=== PATIENT | male | born 1955 | race Caucasian/White ===

== ENCOUNTER 2018-05-04 17:19 | Inpatient (IN) | payer OTHER ==
[~2018-05-04] VITALS: Ht 170.2 cm; Wt 92.5 kg
--- NOTE | 2018-05-04 17:33 | ED GENERAL ADULT ---
History of Present Illness General Chief Complaint: General Adult Stated Complaint: BIBA WITH WEAKNESS Source: patient Exam Limitations: no limitations Vital Signs & Intake/Output Vital Signs & Intake/Output Vital Signs Date Time Temp Pulse Resp B/P B/P Pulse O2 O2 Flow FiO2 Mean Ox Delivery Rate 05/05 0711 98.7 74 18 120/68 95 Nasal 3.0L Cannula 05/05 0637 93 Nasal 3.0L Cannula 05/05 0531 100.0 88 20 130/64 93 Nasal 3.0L Cannula 05/05 0528 100.0 88 20 130/64 05/05 0240 97 Nasal 3.0L Cannula 05/05 0200 98.5 91 20 140/69 92 Room Air 05/04 2302 99.0 92 20 140/67 93 Nasal 3.0L Cannula 05/04 2111 99.4 89 20 135/65 95 Nasal 3.0L Cannula 05/04 1903 99.9 91 20 130/66 96 Room Air 05/04 1727 97 20 128/67 95 Nasal Cannula 05/04 1726 Nasal 3.0L Cannula ED Intake and Output 05/05 0000 05/04 1200 Intake Total 0 Output Total Balance 0 Intake, Oral 0 Patient 201 lb Weight Weight Estimated Measurement Method Allergies Coded Allergies: No Known Allergies (05/04/18) Triage Note: PT BIBA FROM HOME. PER EMS REPORT PD WAS CALLED TO DO A WELFARE CHECK BY PT'S COUSIN BECAUSE HE HAD NOT HEARD FROM HIM IN A FEW DAYS. UPON EMS ARRIVAL PT C/O GENERALIZED "NOT FEELING WELL FOR THE LAST FEW DAYS". PT OFFERS NO SPECIFIC COMPLAINTS. PT ARRIVES A&OX3 AND IS SPEAKING IN FULL COMPLETE SENTENCES. RESPRIATIONS EVEN AND NON LABORED. PT WEARS 3 L NC AT BASELINE. Triage Nurses Notes Reviewed? yes HPI: EMS was called who will for check after his cousin that for the patient in a few days. On EMS arrival patient was found to be weak and lethargic. Patient states that he has had a productive cough and increasing shortness of breath. He denies any chest pain or chest tightness. There are no fevers or chills. He has been anorexic. There's been no nausea or vomiting. (Camilo COCHRAN,Gonzales Gonzalez) Reconcile Medications Albuterol Sulfate (Proair Hfa) 90 MCG HFA.AER.AD 2 PUF INH 4XDAILY PRN RESP. (Reported) Aspirin (Ecotrin*) 81 MG TABLET.DR 1 TAB PO DAILY HEART/BLOOD (Reported) Budesonide/Formoterol Fumarate (Symbicort 80-4.5 Mcg Inhaler) 80 MCG-4.5 MCG/ ACTUATION HFA.AER.AD 2 PUF INH BID RESP. (Reported) Fluoxetine HCl 20 MG CAPSULE 2 CAP PO DAILY MENTAL HEALTH (Reported) Gemfibrozil 600 MG TABLET 1 TAB PO BID CHOLESTEROL (Reported) Hydrochlorothiazide 25 MG TABLET 1 TAB PO DAILY DIURETIC/BP (Reported) Levothyroxine Sodium 112 MCG TABLET 1 TAB PO DAILY AC THYROID (Reported) Methadone Hydrochloride (Methadone HCl) 10 MG TABLET 80 MG PO DAILY BACk PAIN (Reported) Omeprazole 40 MG CAPSULE.DR 1 CAP PO Q12H GI (Reported) Pravastatin Sodium 20 MG TABLET 1 TAB PO QHS CHOLESTEROL (Reported) Tamsulosin HCl 0.4 MG CAP.ER.24H 1 CAP PO Q12H (Reported) Tiotropium [place] (Spiriva) 18 MCG CAP.W.DEV 1 CAP INH DAILY RESP. (Reported ) (Edgard Westfall DO) Past History Travel History Traveled to [place] past 21 day No Medical History Any Pertinent Medical History? see below for history Cardiovascular: hyperlipidemia Respiratory: COPD Endocrine: hypothyroidism Surgical History Surgical History: non-contributory Psychosocial History What is your primary language Peruvian Tobacco Use: Current Daily Use Daily Tobacco Use Amount/Type: => 5 Cigarettes daily ETOH Use: denies use Illicit Drug Use: denies illicit drug use Family History Hx Contributory? No (Camilo COCHRAN,Gonzales Gonzalez) Review of Systems Review of Systems Constitutional: Reports: see HPI, chills, weakness. EENTM: Reports: no symptoms. Respiratory: Reports: see HPI, cough, short of breath, sputum production. Cardiovascular: Reports: no symptoms. GI: Reports: see HPI (ANOREXIA). Genitourinary: Reports: no symptoms. Musculoskeletal: Reports: no symptoms. Skin: Reports: no symptoms. Neurological/Psychological: Reports: no symptoms. Hematologic/Endocrine: Reports: no symptoms. Immunologic/Allergic: Reports: no symptoms. All Other Systems: Reviewed and Negative (Camilo COCHRAN,Gonzales Gonzalez) Physical Exam Physical Exam General Appearance: well developed/nourished, alert, awake, moderate distress Head: atraumatic, normal appearance Eyes: Bilateral: PERRL, EOMI. Ears, Nose, Throat: normal pharynx, normal ENT inspection, hearing grossly normal Neck: normal inspection, supple, full range of motion, NO JVD Respiratory: rhonchi (SCATTERED), wheezing (EXP) Cardiovascular: regular rate/rhythm, normal peripheral pulses Gastrointestinal: normal bowel sounds, soft, non-tender, no organomegaly Back: normal inspection, normal range of motion Extremities: normal inspection, normal capillary refill, normal range of motion Neurologic/Psych: no motor/sensory deficits, awake, alert, oriented x 3, normal gait, normal mood/affect Skin: intact, normal color, warm/dry Core Measures ACS in differential dx? No CVA/TIA Diagnosis: No Sepsis Present: No Sepsis Focused Exam Completed? No (Camilo COCHRAN,Gonzales Gonzalez) Progress Differential Diagnoses I considered the following diagnoses in my evaluation of the patient: [COPD EXACERBATION, PNEUMONIA, AMI,M ELECTROLYTE ABNORMALITY, UTI] Plan of Care: Orders Procedure Date/time Status Heart Healthy Diet 05/05 B Active Change service to 05/05 0715 Active Weight 05/05 0618 Active Vital Signs 05/05 618 Active Teach/Educate 05/05 618 Active Pain Treatment and Response 05/05 618 Active Nutritional Intake, Monitor 05/05 618 Active Isolation 05/05 618 Active Intake & Output 05/05 618 Active Patient Care Conference 05/05 0618 Active Activity/Ambulation 05/05 06 Active TROPONIN LEVEL 05/05 0600 Active CBC WITHOUT DIFFERENTIAL 05/05 0600 Active BASIC ELECTROLYTES PLUS BUN&CR 05/05 0600 Active TRC EVALUATION (GEN) 05/05 228 Active OXYGEN SETUP (GEN) 05/05 228 Active Pathway - chart 05/05 228 Active House Staff 05/05 228 Active SPECIMEN TO BE OBTAINED 05/05 228 Active STREP PNEUMO URINARY ANTIGEN 05/05 228 Active LEGIONELLA URINARY ANTIGEN 05/05 228 Active Patient Data 05/05 0159 Active ED Holding Orders 05/05 149 Active Admit to inpatient 05/05 149 Active Vital Signs 05/05 014 Active Code Status 05/05 149 Active Lab Add-on Test 05/05 UNK Active VTE Mechanical Prophylaxis 05/05 UNK Active Intake & Output 05/05 UNK Active FingerStick- Glucose 05/05 UNK Active GLYCOSYLATED HGB 05/04 1741 Complete Telemetry/Drier Unloader 05/04 1731 Active BLOOD CULTURE 05/04 1731 Active URINALYSIS 05/04 1731 Complete TROPONIN LEVEL 05/04 1731 Complete LIPASE 05/04 1731 Complete LACTIC ACID 05/04 1731 Complete COMPREHENSIVE METABOLIC PANEL 05/04 173 Complete CBC WITHOUT DIFFERENTIAL 05/04 1731 Complete AMYLASE 05/04 1731 Complete EKG 05/04 1731 Active Current Medications Sig/Talha Start time Last Medication Dose Stop Time Status Admin Azithromycin 250 MG 0200 05/06 020 AC (Zithromax) 05/09 020 Ceftriaxone Sodium 1,000 MG 0200 05/06 020 CAN (Rocephin) Pravastatin Sodium 20 MG AT BEDTIME 05/05 2100 AC (Pravachol) Aspirin Buffered 81 MG DAILY 05/05 900 AC (Ecotrin) Budesonide/ 2 PUF BID 05/05 900 AC Formoterol Fumarate (SYMBICORT) Enoxaparin Sodium 40 MG DAILY 05/05 09 AC (Lovenox) Fluoxetine HCl 40 MG DAILY 05/05 09 AC (Prozac) Gemfibrozil 600 MG BID 05/05 09 AC (Lopid 600 MG Tab) Methadone HCl 80 MG DAILY 05/05 09 AC (Dolophine) Nicotine 7 MG DAILY 05/05 09 AC (Nicotine Cq) Tiotropium [place] 1 PUF DAILY 05/05 09 AC (Spiriva) Insulin Aspart 0 TIDAC 05/05 08 CAN (NovoLOG) Levothyroxine Sodium 0.112 MG DAILY AC 05/05 07 AC (Synthroid) Omeprazole 40 MG DAILY AC 05/05 07 AC (Prilosec) Albuterol Sulfate 2 PUF Q6-PRN PRN 05/05 415 AC (Ventolin) Tamsulosin HCl 0.4 MG Q12H 05/05 0415 AC 05/05 (Flomax) 0528 Acetaminophen 650 MG Q6P PRN 05/05 023 AC (Tylenol) Acetaminophen 1,000 MG Q6P PRN 05/05 023 AC (Ofirmev) Laboratory Tests 05/05/18 0022: Urinalysis LIGHT H, Urine Color YEL, Urine Clarity CLEAR, Urine pH 6.5, Ur Specific [place] 1.025, Urine Protein 100 H, Urine Ketones 15 H, Urine Nitrite NEG, Urine Bilirubin NEG@ICTO, Urine Urobilinogen 4.0 H, Ur Leukocyte Esterase NEG, Ur Microscopic SEDIMENT EXAMINED, Urine RBC 1-3, Urine WBC 1-3 H, Ur Epithelial Cells FEW, Urine Bacteria RARE H, Urine Mucus MOD H, Urine Hemoglobin NEG, Urine Glucose NEG 05/04/182030: Lactic Acid Cancelled 05/04/181740: Anion Gap 9, Estimated GFR > 60, BUN/Creatinine Ratio 36.0 H, Glucose 116 H, Hemoglobin A1c 6.0 H, Lactic Acid 1.2, Calcium 8.7, Total Bilirubin 0.9, AST 47 , ALT 37, Alkaline Phosphatase 71, Troponin I 0.05, Total Protein 6.2 L, Albumin 3.5, Globulin 2.7, Albumin/Globulin Ratio 1.3, Amylase 42, Lipase 34, CBC w Diff NO MAN DIFF REQ, RBC 4.25 L, MCV 87.3, MCH 29.5, MCHC 33.8, RDW 13.3 , MPV 8.8, Gran % 90.4 H, Lymphocytes % 5.5 L, Monocytes % 4.0, Eosinophils % 0, Basophils % 0.1, Absolute Granulocytes 6.6 H, Absolute Lymphocytes 0.4 L, Absolute Monocytes 0.3, Absolute Eosinophils 0, Absolute Basophils 0 Microbiology 05/05 22 URINE ROUT: Legionella Antigen - RECD 05/05 22 URINE ROUT: Streptococcus pneumoniae Antigen (M - RECD 05/04 180 BLOOD: Blood Culture - RECD 05/04 180 BLOOD: Blood Culture - RECD Diagnostic Imaging: Viewed by Me: Radiology Read. Discussed w/RAD: Radiology Read. Initial ED EKG: NSR, nonspecific ST T wave chg Hand-Off Endorsed To: Edgard Westfall DO Endorsed Time: 1856 Pending: labs (Camilo COCHRAN,Gonzales Gonzalez) Differential Diagnoses I considered the following diagnoses in my evaluation of the patient: (Edgard Westfall DO) Departure Departure Disposition: STILL A PATIENT Condition: Stable Departure Forms: Customer Survey General Discharge Information (Camilo COCHRAN,Gonzales Gonzalez) Departure Clinical Impression Primary Impression: Weakness Secondary Impressions: Pneumonia Comments Patient was reevaluated. Saturation is 90% on oxygen. He has poor air entry bilaterally. Chest x-ray shows pneumonia. Admission Note Spoke With: Matheus Dihn MD Documentation of Exam: Documentation of any treatments & extenuating circumstances including Concerns Regarding Discharge (functional status, medication knowledge or non-compliance, living conditions, etc.) that warrant an admission rather than observation: [The patient needs admission for nebulizer treatments, IV antibiotics, consider pulmonary consultation] (Edgard Westfall DO) Critical Care Note Critical Care Note Critical Care Time: non-applicable (Camilo COCHRAN,Gonzales Gonzalez)
[2018-05-04 17:48] LABS: ABSOLUTE BASOPHIL COUNT 0 /CUMM (0.0-0.2); ABSOLUTE EOSINOPHIL COUNT 0 /CUMM (0.0-0.7); ABSOLUTE GRANULOCYTE CT 6.6 /CUMM (1.4-6.5); ABSOLUTE LYMPH COUNT 0.4 /CUMM (1.2-3.4); ABSOLUTE MONOCYTE COUNT 0.3 /CUMM (0.10-0.60); BASOPHIL % 0.1 % (0.0-2.0); EOSINOPHIL % 0 % (0-5); HEMATOCRIT 37.1 % (42-52); MEAN CORPUSCULAR HGB 29.5 PG (27.0-31.0); MEAN CORPUSCULAR HGB CONC 33.8 G/DL (33.0-37.0); MEAN CORPUSCULAR VOLUME 87.3 FL (80.0-94.0); MEAN PLATELET VOLUME 8.8 FL (7.4-10.4); PLATELET COUNT 145 /CUMM (130-400); RBC DISTRIBUTION WIDTH 13.3 % (11.5-14.5); RED BLOOD CELL CT 4.25 /CUMM (4.70-6.10); WHITE BLOOD CELL COUNT 7.3 /CUMM (4.8-10.8)
[2018-05-04 18:06] LABS: GRANULOCYTE % 90.4 % (42.2-75.2)
--- NOTE | 2018-05-04 18:57 | RADIOLOGY REPORT ---
EXAMINATION: XR PORTABLE CHEST CLINICAL INFORMATION: Chest pain COMPARISON: None TECHNIQUE: Portable frontal view of the chest was obtained. FINDINGS: There is a large consolidation at the right lung base. The cardiac silhouette appears moderately enlarged. The missile contours are within normal limits. Lungs are otherwise clear. No pleural effusion. IMPRESSION: 1. Right lower lobe pneumonia. Recommend repeat radiograph in 4-6 weeks following treatment. 2. Moderate cardiomegaly.
[2018-05-04] MEDS ORDERED: FLUOXETINE HCL20 M2 PO (19:27)
[2018-05-04] MEDS ORDERED: LEVOTHYROXINE112 MCG PO (19:27)
[2018-05-04] MEDS ORDERED: HYDROCHLOROTHIA25 M1 PO (19:27)
[2018-05-04] MEDS ORDERED: TAMSULOSIN HCL0.4 M1 PO (19:27)
[2018-05-04] MEDS ORDERED: SYMBICORT 80-10.2 GM INH (19:28)
[2018-05-04] MEDS ORDERED: SPIRIVA18 MCG INH (19:28)
[2018-05-04] MEDS ORDERED: GEMFIBROZIL600 M1 PO (19:28)
[2018-05-04] MEDS ORDERED: METFORMIN HCL1000 M1 PO (19:28)
[2018-05-04] MEDS ORDERED: PROAIR HFA8.5 GM INH (19:28)
[2018-05-04] MEDS ORDERED: PRAVASTATIN SOD20 M2 PO (19:29)
[2018-05-04] MEDS ORDERED: OMEPRAZOLE40 M1 PO (19:29)
[2018-05-04] MEDS ORDERED: ASPIRIN EC81 M1 PO (19:30)
--- NOTE | 2018-05-05 02:30 | History & Physical ---
Johnny Fermin 05/05/18 0229: General Information and HPI MD Statement: I have seen and personally examined MATHEUS PLEITEZ and documented this H&P. The patient is a 63 year old M who presented with a patient stated chief complaint of [weakness x 6 days]. Source of Information: patient, old records History of Present Illness: 63M PMH COPD recently diagnosed 8 months ago on 3L oxygen at home, HLD, Hypothyroidism, Diet Controlled DM, BPH presents with a 6 day history of weakness, fatigue, lethargy that has worsened as well as a 3 day history of cough and increased shortness of breath as well as decreased PO intake. Pt states that he feels that he has "the flu" and that this has happened to him once before 8 months ago at the [facility], where he was admitted for two days and given a prednisone taper and diagnosed with COPD. He states that after that admission he has been lethargic however six days ago it acutely worsened. Denies any recent exposures, is not working/retired. Pt states that his cousin called EMS as he did not hear from patient for several days and he was brought in by EMS as he was weak and lethargic. Pt states that the only thing he has eaten in the last three days was the half of peanut butter sandwich he had in the ED; states that he was not hungry the past two days and states that he was quick to feel full today in the ED. Does state that he has taken down fluids. Also states that he has had a nonproductive cough the past three days which has worsened, although not as bad as his previous admission 8 months ago which was productive of green sputum. Is on home O2 3L, and has not increased the use of his inhalers. Pt [facility] States that [facility] but instead was "dragged in by his cousin". Is concerned about a lesion on the right side of his forehead that has grown in size and changed color over the past two years, although states that yesterday he fell out of bed 3 times throughout the night. Also admits to a significant use of Aleeve, 4 pills a day daily for several months. States that he has had several bruises on his arms that bleed easily because of the aleeve, and his [facility] doctor told him to stop taking that. 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; on Methadone 80mg daily due to back pain ROS: Significant findings for recent falls (3x during his sleep), Subjective fevers Negative for: Measured fevers, dizziness, blurred vision, chest pain, abdominal pain, n/v/d, urinary symptoms, LE edema Allergies/Medications Compliance With Home Meds: FAIR Past History Travel History Traveled to [place] past 21 day No Medical History Cardiovascular: hyperlipidemia Respiratory: COPD Endocrine: diabetes (diet controlled), hypothyroidism Surgical History Surgical History: non-contributory Past Family/Social History Psychosocial History Smoking Status: Current Everyday Smoker ETOH Use: denies use Illicit Drug Use: denies illicit drug use Functional Ability ADLs Independent: dressing, eating, toileting, bathing. Ambulation: independent IADLs Independent: shopping, housework, finances, food prep, telephone, transportation , medication admin. 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 Denies: unexplained weight loss. Cardiovascular: Denies: chest pain, palpitations. Respiratory: Reports: cough, short of breath. Denies: hemoptysis, sputum production, wheezing. GI: Denies: abdominal pain, diarrhea, nausea, vomiting. Genitourinary: Denies: dysuria, frequency. Exam & Diagnostic Data Last 24 Hrs of Vital Signs/I&O Vital Signs Date Time Temp Pulse Resp B/P B/P Pulse O2 O2 Flow FiO2 Mean Ox Delivery Rate 05/05 0240 97 Nasal 3.0L Cannula 05/05 0200 98.5 91 20 140/69 92 Room Air 05/04 2302 99.0 92 20 140/67 93 Nasal 3.0L Cannula 05/04 2111 99.4 89 20 135/65 95 Nasal 3.0L Cannula 05/04 1903 99.9 91 20 130/66 96 Room Air 05/04 1727 97 20 128/67 95 Nasal Cannula 05/04 1726 Nasal 3.0L Cannula Intake & Output 05/05 0800 08/13 0000 05/04 1600 Intake Total 0 Output Total Balance 0 Intake, Oral 0 Patient 201 lb Weight Weight Estimated Measurement Method Physical Exam General Appearance Alert, Oriented X3, Cooperative, No Acute Distress Skin small papular lesion to R forehead, violaceous/brown in color, tattoos on forearms; small ?bruising to b/l upper extremities Skin Temp/Moisture Exam: Warm/Dry HEENT poor dentition Neck No JVD Cardiovascular Regular Rate, Normal S1, Normal S2 Lungs rhoncherous in all koehler, inspriatory wheeze to RLL Abdomen Soft, RUQ tenderness, LLQ tenderness Neurological Strength at 5/5 X4 Ext, Sensation Intact Extremities No Edema Assessment/Plan Assessment: 63M PMH COPD recently diagnosed 8 months ago on 3L oxygen at home, HLD, Hypothyroidism, Diet Controlled DM, BPH presents with a 6 day history of weakness, fatigue, lethargy that has worsened as well as a 3 day history of cough and increased shortness of breath as well as decreased PO intake. He was found to have a RLL pneumonia on CXR, although without Leukocytosis or Fevers. He desaturated to 90% in the ED and was thus admitted for treatment of CAP. His urine legionella antigen came back positive and thus will be treated for Legionella. Patient will be treated for Legionella pneumonia with hyponatremia and antigen positive,however other differentials include Community Acquired Pneumonia, COPD exacerbation although less likely given CXR findings and no significant SOB on exam, Acute bronchitis, Pulm edema (without crackles or edema on PE but CXR findings of cardiomegaly) Problem List #Legionella PNA #Normacytic anemia #Hyponatremia, likely 2/2 Legionella, however may also 2/2 HCTZ use #Methadone dependence, 80mg qd for back pain. #PMHx as above #Legionella Pneumonia -Zithromax PO -F/u CBC #Hyponatremia -Hold HCTZ, likely 2/2 Legionella however can also contribute #DM - diet controlled - recheck HbA1c. #COPD on 3L oxygen at home - Supplemental O2/DuoNeb as needed. - Not in COPD exacerbation, at baseline 3LNC. Will monitor off solumedrol. #Methadone dependence - Confirmed CTPMP for methadone 80mg daily. DVT prophylaxis Lovenox + ALPS Regular Diet IV Access: Peripheral IV Full Code Dispo: likely [facility] As Ranked By This Provider Problem List: 1. Pneumonia 2. Weakness Core Measures/Misc (06/09) Acute Coronary Syndrome ACS Diagnosis: No Congestive Heart Failure Congestive Heart Failure Diagnosis No Cerebrovascular Accident CVA/TIA Diagnosis: No VTE (View Protocol) VTE Risk Factors Age>40 No Mechanical VTE Prophylaxis d/t N/A MechProphylax Ordered No VTE Pharm Prophylaxis d/t NA PharmProphylax ordered Sepsis (View protocol) Sepsis Present: No If YES complete Sepsis Event Note If YES complete Sepsis Event Note Tiffanie Christine 05/05/18 0255: Core Measures/Misc (06/09) Sepsis (View protocol) If YES complete Sepsis Event Note If YES complete Sepsis Event Note Resident Review Statement Resident Statement: examined this patient, discussed with leadership program intern, agreed with leadership program intern, discussed with family, reviewed EMR data (avail), discussed with nursing , discussed with case mgmt, reviewed images, amended to note Other Findings: Mr. Pleitez is a 63yo M w/ PMH of DIet-controlled DM, HLD, COPD on home O2 3L, hypoTSH, BPH presented to ER CC of appeared to be SOB, weak, and lethargic, w/ productive cough w/ green sputum x 3 days, and increasing lethargy x 6 days w/ decreased PO intake. His cousin called EMS as he did not hear from the patient for several days. He has been taken [facility] without previous medical records here. Based on clinical presentaion, patient might have a community acquired PNA +/- COPD exacerbation, although no increased needs of oxygen was observed in the ER. CXR confirmed CAP findings, and urinary antigen showed positive legionella, that explained the hyponatremia, although the hypoNa could partially be due to use of HCTZ at home as well. Patient had been off metformin at this point. He is also taking Methadone 80mg daily for back pain. Patient also c/o RUQ and LLQ ab pain, mild. Unclear etiology at this point, however based on labs w/o leukocytosis/LFTs or any toxic signs of infection, would monitor for now. -Smoking: self-rolled cigars daily -Alcohol: 1-2 beer daily -Drugs: denied On admission, Vitals: Tmax 99.9, HR tachy 92, RR 20, BP 140/67, 93 3LNC Physical exam as above per HPI. -CBC: No leukocytosis, H/H 12.5/37.1 -CMP: Hyponatremia 131, Bicardb 32, CL 91, otherwise WNL. -CXR: 1. Right lower lobe pneumonia. Recommend repeat radiograph in 4-6 weeks following treatment. 2. Moderate cardiomegaly. -EKG: NSR w/o significant ST-T abnormalities, unchanged from previous. -Last Echo: not in our system -Interventions in ER: Duonebs, Rocephin/Zithromax x 1, solumedrol 125 IV x 1 Problem list/Assessment/Hospital Course: #Legionella PNA #Normacytic anemia #Hyponatremia, likely 2/2 Legionella, however may also 2/2 HCTZ use #Methadone dependence, 80mg qd for back pain. #PMHx as above - Admit to general medicine - Vitals per protocol, monitor I&O per protocol. - recheck HbA1c. - Supplemental O2/DuoNeb as needed. - Not in COPD exacerbation, at baseline 3LNC. Will monitor off solumedrol. - Continue Zithromax PO for now to cover legionella, and determine duration per clinical course - Continue all home meds, except HOLDING HCTZ/Metformin - Confirmed CTPMP for methadone 80mg daily. - Pending cultures including blood/sputum, urine antigens, etc. - Pain per pathway DVT prophylaxis Lovenox + ALPS Regular Diet IV Access: Peripheral IV Full Code Dispo: likely [place] Matheus Dinh MD 05/05/18 0428: General Information and HPI Statement: I have seen and personally examined MATHEUS PLEITEZ and documented this H&P. The patient is a 63 year old M who presented with a patient stated chief complaint of [pneumonia]. Source of Information: old records Allergies/Medications Allergies: Coded Allergies: No Known Allergies (05/04/18) Home Med list Albuterol Sulfate (Proair Hfa) 90 MCG HFA.AER.AD 2 PUF INH 4XDAILY PRN RESP. (Reported) Aspirin (Ecotrin*) 81 MG TABLET. 1 TAB PO DAILY HEART/BLOOD (Reported) Budesonide/Formoterol Fumarate (Symbicort 80-4.5 Mcg Inhaler) 80 MCG-4.5 MCG/ ACTUATION HFA.AER.AD 2 PUF INH BID RESP. (Reported) Fluoxetine HCl 20 MG CAPSULE 2 CAP PO DAILY MENTAL HEALTH (Reported) Gemfibrozil 600 MG TABLET 1 TAB PO BID CHOLESTEROL (Reported) Hydrochlorothiazide 25 MG TABLET 1 TAB PO DAILY DIURETIC/BP (Reported) Levothyroxine Sodium 112 MCG TABLET 1 TAB PO DAILY AC THYROID (Reported) Methadone Hydrochloride (Methadone HCl) 10 MG TABLET 80 MG PO DAILY BACk PAIN (Reported) Omeprazole 40 MG CAPSULE.DR 1 CAP PO Q12H GI (Reported) Pravastatin Sodium 20 MG TABLET 1 TAB PO QHS CHOLESTEROL (Reported) Tamsulosin HCl 0.4 MG CAP.ER.24H 1 CAP PO Q12H (Reported) Tiotropium [place] (Spiriva) 18 MCG CAP.W.DEV 1 CAP INH DAILY RESP. (Reported ) Past History Medical History Cardiovascular: hyperlipidemia Respiratory: COPD Endocrine: diabetes, hypothyroidism Surgical History Surgical History: non-contributory Past Family/Social History Psychosocial History Smoking Status: Current Everyday Smoker ETOH Use: denies use Illicit Drug Use: denies illicit drug use Employment History Employment Retired Review of Systems Review of Systems Constitutional: Reports: see HPI. Exam & Diagnostic Data Last 24 Hrs of Vital Signs/I&O Vital Signs Date Time Temp Pulse Resp B/P B/P Pulse O2 O2 Flow FiO2 Mean Ox Delivery Rate 05/05 0240 97 Nasal 3.0L Cannula 05/05 0200 98.5 91 20 140/69 92 Room Air 05/04 2302 99.0 92 20 140/67 93 Nasal 3.0L Cannula 05/04 2111 99.4 89 20 135/65 95 Nasal 3.0L Cannula 05/04 1903 99.9 91 20 130/66 96 Room Air 05/04 1727 97 20 128/67 95 Nasal Cannula 05/04 1726 Nasal 3.0L Cannula Intake & Output 05/05 0800 05/05 0000 05/04 1600 Intake Total 0 Output Total Balance 0 Intake, Oral 0 Patient 201 lb Weight Weight Estimated Measurement Method Physical Exam General Appearance Alert, Oriented X3, Cooperative, No Acute Distress Skin small papular lesion to R forehead, violaceous/brown in color, tattoos on forearms; small ?bruising to b/l upper extremities Skin Temp/Moisture Exam: Cool/Dry Sepsis Skin Exam (color): Normal for Ethnicity HEENT Atraumatic, PERRLA, EOMI, poor dentition Neck Supple, No JVD Lymphatic Axillary nl, Cervical nl Cardiovascular Regular Rate, Normal S1, Normal S2 Lungs Clear to Auscultation, Normal Air Movement, rhoncherous in all koehler, inspriatory wheeze to RLL Abdomen Soft, RUQ tenderness, LLQ tenderness Neurological Strength at 5/5 X4 Ext, Sensation Intact Extremities No Edema Last 24 Hrs of Labs/Melvin: Laboratory Tests 05/05/1821: Urinalysis LIGHT H, Urine Color YEL, Urine Clarity CLEAR, Urine pH 6.5, Ur Specific [place] 1.025, Urine Protein 100 H, Urine Ketones 15 H, Urine Nitrite NEG, Urine Bilirubin NEG@ICTO, Urine Urobilinogen 4.0 H, Ur Leukocyte Esterase NEG, Ur Microscopic SEDIMENT EXAMINED, Urine RBC 1-3, Urine WBC 1-3 H, Ur Epithelial Cells FEW, Urine Bacteria RARE H, Urine Mucus MOD H, Urine Hemoglobin NEG, Urine Glucose NEG 05/04/182030: Lactic Acid Cancelled 05/04/18 1741: Anion Gap 9, Estimated GFR > 60, BUN/Creatinine Ratio 36.0 H, Glucose 116 H, Hemoglobin A1c Pending, Lactic Acid 1.2, Calcium 8.7, Total Bilirubin 0.9, AST 47, ALT 37, Alkaline Phosphatase 71, Troponin I 0.05, Total Protein 6.2 L, Albumin 3.5, Globulin 2.7, Albumin/Globulin Ratio 1.3, Amylase 42, Lipase 34, CBC w Diff NO MAN DIFF REQ, RBC 4.25 L, MCV 87.3, MCH 29.5, MCHC 33.8, RDW 13.3 , MPV 8.8, Gran % 90.4 H, Lymphocytes % 5.5 L, Monocytes % 4.0, Eosinophils % 0, Basophils % 0.1, Absolute Granulocytes 6.6 H, Absolute Lymphocytes 0.4 L, Absolute Monocytes 0.3, Absolute Eosinophils 0, Absolute Basophils 0 Microbiology 05/05 22 URINE ROUT: Legionella Antigen - RECD 05/05 22 URINE ROUT: Streptococcus pneumoniae Antigen (M - RECD 05/04 1804 BLOOD: Blood Culture - RECD 05/04 1803 BLOOD: Blood Culture - RECD Core Measures/Misc (06/09) Sepsis (View protocol) If YES complete Sepsis Event Note If YES complete Sepsis Event Note Attending MD Review Statement Attending Statement Attending MD Statement: examined this patient, discuss w/resident/PA/SORTING AND FOLDING SUPERVISOR, agreed w/resident/PA/SORTING AND FOLDING SUPERVISOR, reviewed images, amended to note Attending Assessment/Plan: This patient is a 63-year-old male with a significant past medical history for COPD recently diagnosed 8 months ago on 3L oxygen at home, HLD, Hypothyroidism, Diet Controlled DM, BPH presents with a 6 day history of weakness, fatigue, lethargy that has worsened. He also complaints of a 3 day history of cough and increased shortness of breath. He states that his cousin called EMS as he did not hear from patient for several days. Upon evaluation in the emergency department is found to have a temperature of 99.9, normal white blood cell count , hyponatremia 131, chest x-ray right lower lobe pneumonia, and EKG NSR. The patient will be admitted to general medicine for right lower lobe pneumonia secondary to Legionella. Continue azathioprine erythromycin supportive care for respiratory symptoms. FULL CODE
[2018-05-05] MEDS ORDERED: METHADONE HCL10 M1 PO (04:10)
[2018-05-05 07:11] VITALS: BP 120/68
--- NOTE | 2018-05-05 07:25 | PN- Housestaff ---
See Addendum Doris Rincon 05/05/18 0724: Subjective Follow-up For: RLL pneumonia Subjective: The patient was seen and examined at bedside. He reports he feels slightly better, although still weak. He is concerned why he got a recurence of the pneumonia in just 8 months. He reports some diffuse abdominal tenderness. He complains the [facility] paid no attention to his concerns of feeling weak with no energy at all. The patient lives in a mobile home with poor air- conditioning. He says the air conditioning "smells bad" when he turns it on. He says he has no money to replace it. He reports that he was accepted at an assisted living facility but has no money to move his stuff. He was reassured. He denies fever, chills, nausea, vomitng, diarrhea or constipation. Review of Systems Constitutional: Reports: see HPI. Objective Last 24 Hrs of Vital Signs/I&O Vital Signs Date Time Temp Pulse Resp B/P B/P Pulse O2 O2 Flow FiO2 Mean Ox Delivery Rate 05/05 0711 98.7 74 18 120/68 95 Nasal 3.0L Cannula 05/05 0637 93 Nasal 3.0L Cannula 05/05 0531 100.0 88 20 130/64 93 Nasal 3.0L Cannula 05/05 0528 100.0 88 20 130/64 05/05 0240 97 Nasal 3.0L Cannula 05/05 0200 98.5 91 20 140/69 92 Room Air 05/04 2302 99.0 92 20 140/67 93 Nasal 3.0L Cannula 05/04 2111 99.4 89 20 135/65 95 Nasal 3.0L Cannula 05/04 1903 99.9 91 20 130/66 96 Room Air 05/04 1727 97 20 128/67 95 Nasal Cannula 05/04 1726 Nasal 3.0L Cannula Intake & Output 05/05 1600 05/05 0800 05/05 0000 Intake Total 0 Output Total Balance 0 Intake, Oral 0 Patient 204 lb 201 lb Weight Weight Bed scale Estimated Measurement Method Physical Exam General Appearance: Alert, Oriented X3, Cooperative, No Acute Distress Neck: Supple Cardiovascular: Regular Rate, Normal S1, Normal S2 Lungs: Scattered rhonchi b/l lung koehler decreased air entry b/l lung bases Abdomen: Mild diffuse tenderness especially localised in the RUQ and LLQ Assessment/Plan Assessment: 63M PMH COPD recently diagnosed 8 months ago on 3L oxygen at home, HLD, Hypothyroidism, Diet Controlled DM, BPH presents with a 6 day history of weakness, fatigue, lethargy that has worsened as well as a 3 day history of cough and increased shortness of breath as well as decreased PO intake. He was found to have a RLL pneumonia on CXR, although without Leukocytosis or Fevers. He desaturated to 90% in the ED and is thusadmitted for treatment of CAP. His urine legionella antigen came back positive and thus will be treated for Legionella. Patient is being treated for Legionella pneumonia with hyponatremia( could be secondary to HCTZ use0 and antigen positive,however other differentials include Community Acquired Pneumonia, COPD exacerbation although less likely given CXR findings and no significant SOB on exam, Acute bronchitis, Pulm edema (without crackles or edema on PE but CXR findings of cardiomegaly) Problem List 1.Legionella PNA 2.Normacytic anemia 3.Hyponatremia, likely 2/2 Legionella, however may also 2/2 HCTZ use 4.Methadone dependence, 80mg qd for back pain. 5.PMHx as above 1. Legionella Pneumonia -The patient does complain of extreme malaise and weakness - The patient is on Zithromax 250mg PO -WBC 6.7 Na: 131, Cl:90 -F/u CBC 2. Hyponatremia -We are holding his HCTZ for now given hypokalemia and borderline hypokalemia 3. DM - diet controlled - We will recheck his HbA1C 4. COPD on 3L oxygen at home - Supplemental O2/DuoNeb as needed. - Not in COPD exacerbation, at baseline 3LNC. Will monitor off solumedrol. 5.Methadone dependence - Confirmed CTPMP for methadone 80mg daily. DVT prophylaxis Lovenox + ALPS Regular Diet IV Access: Peripheral IV Full Code Dispo: to be decided Problem List: 1. Legionnaires' disease 2. Weakness Pain Ratin Pain Location: na Pain Goal: Remain pain free Pain Plan: pathway Tomorrow's Labs & Rationales: cbc and bep Gustavo Iqbal 05/05/18 1518: Attending MD Review Statement Attending Statement Attending MD Statement: examined this patient, discuss w/resident/PA/PARKING METER COLLECTOR, agreed w/resident/PA/PARKING METER COLLECTOR, reviewed EMR data (avail), discussed with nursing, discussed with case mgmt Attending Assessment/Plan: Legionella pneumonia- pt feeling better. cont on zithromax. pt responding. pt wants to go to [facility] living. will have social work associate talk to him about it. d/w pt the care plan. encouraged pt to quit smoking .
[2018-05-05 11:49] LABS: ABSOLUTE BASOPHIL COUNT 0 /CUMM (0.0-0.2); ABSOLUTE EOSINOPHIL COUNT 0 /CUMM (0.0-0.7); ABSOLUTE GRANULOCYTE CT 6.3 /CUMM (1.4-6.5); ABSOLUTE LYMPH COUNT 0.3 /CUMM (1.2-3.4); ABSOLUTE MONOCYTE COUNT 0.1 /CUMM (0.10-0.60); BASOPHIL % 0 % (0.0-2.0); EOSINOPHIL % 0 % (0-5); HEMATOCRIT 34.8 % (42-52); MEAN CORPUSCULAR HGB 30.1 PG (27.0-31.0); MEAN CORPUSCULAR HGB CONC 34.4 G/DL (33.0-37.0); MEAN CORPUSCULAR VOLUME 87.4 FL (80.0-94.0); MEAN PLATELET VOLUME 8.9 FL (7.4-10.4); PLATELET COUNT 142 /CUMM (130-400); RBC DISTRIBUTION WIDTH 13.2 % (11.5-14.5); RED BLOOD CELL CT 3.98 /CUMM (4.70-6.10); WHITE BLOOD CELL COUNT 6.7 /CUMM (4.8-10.8)
[2018-05-05 12:39] LABS: GRANULOCYTE % 93.7 % (42.2-75.2)
[2018-05-05 22:07] VITALS: BP 100/60
[2018-05-06 06:11] VITALS: BP 104/60
--- NOTE | 2018-05-06 07:38 | PN- Housestaff ---
Doris Rincon 05/06/18 0738: Subjective Follow-up For: Legionella Pneumonia Subjective: The patient was seen and examined at bedside today. He says he feels much better. He denies shortness of breath, fever, nausea, vomiting, diarrhea, constipation. Review of Systems Constitutional: Reports: see HPI. Objective Last 24 Hrs of Vital Signs/I&O Vital Signs Date Time Temp Pulse Resp B/P B/P Pulse O2 O2 Flow FiO2 Mean Ox Delivery Rate 05/06 1404 97.0 58 20 122/60 98 Room Air 05/06 1000 95 Room Air 05/06 0800 95 Nasal 3.0L Cannula 05/06 0611 97.5 60 20 104/60 98 Room Air 05/06 0500 65 100/60 05/06 0000 Nasal 3.0L Cannula 05/05 2207 97.8 63 18 100/60 96 Room Air 05/05 1915 94 Room Air 05/05 1650 78 138/70 Intake & Output 05/06 1600 05/06 0800 05/06 0000 Intake Total 720 360 700 Output Total Balance 720 360 700 Intake, Oral 720 360 700 Number 1 Bowel Movements Physical Exam General Appearance: Alert, Oriented X3, Cooperative, No Acute Distress Skin: No Rashes Neck: Supple Cardiovascular: Regular Rate, Normal S1, Normal S2 Lungs: Clear to Auscultation, decreased air entry Right lower lobe Abdomen: Normal Bowel Sounds, Soft, No Tenderness Assessment/Plan Assessment: 63M PMH COPD recently diagnosed 8 months ago on 3L oxygen at home, HLD, Hypothyroidism, Diet Controlled DM, BPH presents with a 6 day history of weakness, fatigue, lethargy that has worsened as well as a 3 day history of cough and increased shortness of breath as well as decreased PO intake. He was found to have a RLL pneumonia on CXR, although without Leukocytosis or Fevers. His urine legionella antigen came back positive. Patient is being treated for Legionella pneumonia with hyponatremia( could be secondary to HCTZ use0 and antigen positive,however other differentials include Community Acquired Pneumonia, COPD exacerbation although less likely given CXR findings and no significant SOB on exam, Acute bronchitis, Pulm edema (without crackles or edema on PE but CXR findings of cardiomegaly) Problem List 1.Legionella PNA 2.Normacytic anemia 3.Hyponatremia, likely 2/2 Legionella, however may also 2/2 HCTZ use 4.Methadone dependence, 80mg qd for back pain. 5.PMHx as above 6. History of COPD on oxygen 1. Legionella Pneumonia -The patient does complain of extreme malaise and weakness - The patient is on Zithromax 250mg PO - The patient is being discharged home on Zithromax 250mg BID for 5 more days. 2. Hyponatremia -We are holding his HCTZ for now given hypokalemia and borderline hypokalemia 3. DM - diet controlled -Patient was encouraged to continue to try eating healthy for his diabetes, 4. COPD on 3L oxygen at home - Supplemental O2/DuoNeb as needed. - Not in COPD exacerbation, at baseline 3LNC. 5.Methadone dependence - Confirmed CTPMP for methadone 80mg daily. DVT prophylaxis Code status: Full code Problem List: 1. History of COPD 2. Legionnaires' disease 3. Pneumonia 4. Weakness Pain Ratin Pain Location: na Pain Goal: Remain pain free Pain Plan: na Tomorrow's Labs & Rationales: Gustavo Zapata 05/06/18 1449: Attending MD Review Statement Attending Statement Attending MD Statement: examined this patient, discuss w/resident/PA/PACKER INSPECTOR, agreed w/resident/PA/PACKER INSPECTOR, reviewed EMR data (avail), discussed with nursing, discussed with case mgmt Attending Assessment/Plan: Legionella pneumonia- pt feeling better. cont on zithromax. pt responding. Dc home today on po zithromax. Nicotine dependence. encouraged pt to quit smoking . given nicotine patch prescription. d/w pt the dc plan. Pt lives in a mobile home.
[2018-05-06 08:31] LABS: ABSOLUTE BASOPHIL COUNT 0 /CUMM (0.0-0.2); ABSOLUTE EOSINOPHIL COUNT 0 /CUMM (0.0-0.7); ABSOLUTE GRANULOCYTE CT 5.3 /CUMM (1.4-6.5); ABSOLUTE LYMPH COUNT 0.8 /CUMM (1.2-3.4); ABSOLUTE MONOCYTE COUNT 0.5 /CUMM (0.10-0.60); BASOPHIL % 0 % (0.0-2.0); EOSINOPHIL % 0.7 % (0-5); GRANULOCYTE % 79.7 % (42.2-75.2); HEMATOCRIT 32.8 % (42-52); MEAN CORPUSCULAR HGB 30.6 PG (27.0-31.0); MEAN CORPUSCULAR VOLUME 87.5 FL (80.0-94.0); MEAN PLATELET VOLUME 9.2 FL (7.4-10.4); PLATELET COUNT 151 /CUMM (130-400); RED BLOOD CELL CT 3.75 /CUMM (4.70-6.10); WHITE BLOOD CELL COUNT 6.7 /CUMM (4.8-10.8)
[2018-05-06] MEDS ORDERED: NICOTINE PATCH1 EAC3 TOP (13:44)
[2018-05-06] MEDS ORDERED: AZITHROMYCIN250 M1 PO (13:44)
--- NOTE | 2018-05-06 13:46 | Patient Discharge Instructions ---
Discharge Instructions General Discharge Information You were seen/treated for: Pneumonia Special Instructions: 1. Please follow up with your PCP in a week. 2. Please report to the ED immediately if you develop fever, chills or shortness of breath Acute Coronary Syndrome Inclusion Criteria At DC or during hospital stay patient has or had the following: ACS DIAGNOSIS No Discharge Core Measures Meds if any: Prescribed or Continued at Discharge Meds if any: NOT Prescribed or Continued at Discharge Congestive Heart Failure Inclusion Criteria At DC or during hospital stay patient has or had the following: CHF DIAGNOSIS No Discharge Core Measures Meds if any: Prescribed or Continued at Discharge Meds if any: NOT Prescribed or Continued at Discharge Cerebrovascular accident Inclusion Criteria At DC or during hospital stay patient has or had the following: CVA/TIA Diagnosis No Discharge Core Measures Meds if any: Prescribed or Continued at Discharge Meds if any: NOT Prescribed or Continued at Discharge Venous thromboembolism Inclusion Criteria VTE Diagnosis No VTE Type NONE VTE Confirmed by (Test) NONE Discharge Core Measures - Per Current guidelines, there needs to be overlap - treatment for the first 5 days of Warfarin therapy. - If discharged on Warfarin prior to 5 days of - overlap therapy, the patient will need to be - assessed for post discharge needs including - *Post discharge parental anticoagulation - *Warfarin and/or parental anticoagulation education - *Follow up date to check INR post discharge At least 5 days overlap therapy as Inpatient No Meds if any: Prescribed or Continued at Discharge Note: Overlap Therapy is Warfarin and Anticoagulant Meds if any: NOT Prescribed or Continued at Discharge
[2018-05-06 14:04] VITALS: BP 122/60
--- NOTE | 2018-05-07 08:50 | Discharge Summary ---
Visit Information Visit Dates Admission Date: 05/05/18 Discharge Date: 05/06/18 Hospital Course Course Attending Physician: Ignacio Moya MD Primary Care Physician: Axel Cheney MD Hospital Course: 63M PMH COPD recently diagnosed 8 months ago on 3L oxygen at home, HLD, Hypothyroidism, Diet Controlled DM, BPH was admitted to the [facility] service for the management of acute on chronic respiratory failure secondary to CAP. On examination, small papular lesion to R forehead, violaceous/brown in color was noticed on the forehead. Lungs were rhoncherous in all koehler, inspriatory wheeze to RLL. Abdomen was soft with RUQ tenderness, LLQ tenderness. Vital signs in the ED were: Tmax 99.9, HR tachy 92, RR 20, BP 140/67, 93 3LNC -CBC: No leukocytosis, H/H 12.5/37.1 -CMP: Hyponatremia 131, Bicarb 32, CL 91, otherwise WNL. Urine Ag was positive for Legionella. -CXR: 1. Right lower lobe pneumonia. Recommend repeat radiograph in 4-6 weeks following treatment. 2. Moderate cardiomegaly. He was managed for the following problems: 1.Legionella PNA 2.Normacytic anemia 3.Hyponatremia, likely 2/2 Legionella, however may also 2/2 HCTZ use 4.Methadone dependence, 80mg qd for back pain. 5.PMHx as above 6. Acute on chronic respiratory failure 1. Legionella Pneumonia -Patient presented with a 6 day history of weakness, fatigue, lethargy that has worsened as well as a 3 day history of cough and increased shortness of breath as well as decreased PO intake. -The patient reported that he lives in a mobile home with air conditoning that ' smells bad" when turned on. - The patient was given Zithromax 250 mg BID and showed rapid improvemnt in his symptoms of malaise, fatigue and shortness of breath. -The patient was afebrile with a WBC of 6.7 on the day of discharge. -He remained on the 3L oxygen during the course of his hospital stay. -He was discharged home on Azithromycin 250mg BID for 5 days -Smoking cessation was encouraged and his nicotine patch was increased to 21mg 2. Hyponatremia -We held his HCTZ in the hospital for the concerns of hyponatremia. His Na was 136 on discharge. 3. DM - diet controlled - HbA1C was 6 in the hospital 4. COPD on 3L oxygen at home -The patient remained on 3L oxygen for chronic respiratory failure while in the hospital 5.Methadone dependence - Confirmed [facility] for methadone 80mg daily. DVT prophylaxis Lovenox + ALPS. He was a full code during his stay. Allergies: Coded Allergies: No Known Allergies (05/04/18) Disposition Summary Disposition Principal Diagnosis: Community Acquired Pneumonia with Acute on Chronic Respiratory Failure Additional Diagnosis: Hyponatremia Methadone dependence Normocytic Anemia Discharge Disposition: home or self care Discharge Instructions General Discharge Information Code Status: Full Code Patient's Diet: Regular diet Patient's Activity: As tolerated Follow-Up Instructions/Appts: The patient was encouraged to quit smoking He was requested to follow up with his PCP within a week of his discharge Medications at Discharge Discharge Medications: Stop taking the following medications: Metformin HCl (Metformin HCl) 1,000 MG TABLET ORAL TWICE DAILY Qty = 180 Continue taking these medications: Fluoxetine HCl (Fluoxetine HCl) 20 MG CAPSULE 2 Capsule ORAL DAILY Qty = 180 Comments: Last Taken: 05/06/18 Time: 10:00 AM Hydrochlorothiazide (Hydrochlorothiazide) 25 MG TABLET 1 Tablet ORAL DAILY Qty = 90 Comments: NOT GIVEN IN HOSPITAL Tamsulosin HCl (Tamsulosin HCl) 0.4 MG CAP.ER.24H 1 Capsule ORAL Q12H Qty = 180 Comments: Last Taken: 05/06/18 Time: 5:00 AM Levothyroxine Sodium (Levothyroxine Sodium) 112 MCG TABLET 1 Tablet ORAL DAILY BEFORE BREAKFAST Qty = 90 Comments: Last Taken: 05/06/18 Time: 5:00 AM Budesonide/Formoterol Fumarate (Symbicort 80-4.5 Mcg Inhaler) 80 MCG-4.5 MCG/ ACTUATION HFA.AER.AD 2 Puff Inhale through mouth TWICE DAILY Qty = 10 Comments: Last Taken: 05/06/18 Time: 10:00 AM Tiotropium [place] (Spiriva) 18 MCG CAP.W.DEV 1 Capsule Inhale through mouth DAILY Qty = 60 Comments: Last Taken: 05/06/18 Time: 10:00 AM Albuterol Sulfate (Proair Hfa) 90 MCG HFA.AER.AD 2 Puff Inhale through mouth 4XDAILY as needed for RESP. Qty = 26 Comments: PROVENTIL NEB TREATMENT BY RESPIRATORY Last Taken: 05/06/18 Time: 8:30 AM Gemfibrozil (Gemfibrozil) 600 MG TABLET 1 Tablet ORAL TWICE DAILY Qty = 180 Comments: Last Taken: 05/06/18 Time: 10:00 AM Omeprazole (Omeprazole) 40 MG CAPSULE.DR 1 Capsule ORAL Q12H Qty = 180 Comments: Last Taken: 05/06/18 Time: 5:00 AM Pravastatin Sodium (Pravastatin Sodium) 20 MG TABLET 1 Tablet ORAL TAKE AT BEDTIME Qty = 90 Comments: Last Taken: 05/05/18 Time: 8:00 PM Aspirin (Ecotrin*) 81 MG TABLET.DR 1 Tablet ORAL DAILY Comments: Last Taken: 05/06/18 Time: 10:00 AM Methadone Hydrochloride (Methadone HCl) 10 MG TABLET 80 Milligram ORAL DAILY Comments: Last Taken: 05/06/18 Time: 10:00 AM Start taking the following new medications: Azithromycin (Azithromycin) 250 MG TABLET 250 Milligram ORAL TWICE DAILY Days = 5 No Refills Nicotine (Nicotine Patch) 21 MG/24 HOUR PATCH.TD24 21 Milligram On the skin 1200 Days = 30 No Refills Copies To: Shravan COCHRAN,Axel Kapoor MD Review Statement Other Findings: Patient of Dr Elijah Iqbal MD. Please cc him
== END 2018-05-06 14:35 | DRG 178 ==
LOC: ERH 17:19 → ERHI 05-05 01:49 → 2NA 05-05 01:49 → ENRESERV 05-05 04:56 → 2NA 05-05 05:40 → ENPENDDIS 05-06 13:54 → 2NA 05-06 14:35
PROVIDERS: Emergency Medicine; Hospitalist
DX: A48.1 Legionnaires' disease (principal); J96.10 Chronic respiratory failure, unspecified whether with hypoxia or hypercapnia; E87.1 Hypo-osmolality and hyponatremia; F11.20 Opioid dependence, uncomplicated; Z99.81 Dependence on supplemental oxygen; E03.9 Hypothyroidism, unspecified; E78.5 Hyperlipidemia, unspecified; N40.0 Benign prostatic hyperplasia without lower urinary tract symptoms; E11.9 Type 2 diabetes mellitus without complications; J44.9 Chronic obstructive pulmonary disease, unspecified; W19.XXXA Unspecified fall, initial encounter; D64.9 Anemia, unspecified; G89.29 Other chronic pain; M54.9 Dorsalgia, unspecified; T50.2X5A Adverse effect of carbonic-anhydrase inhibitors, benzothiadiazides and other diuretics, initial encounter; F17.210 Nicotine dependence, cigarettes, uncomplicated; Z79.82 Long term (current) use of aspirin; Z79.51 Long term (current) use of inhaled steroids
CPT/HCPCS: 2NASP; 36415; 71045; 81001; 82436; 87040; 87449; 87450; 93005; 93010; J0131; J0456; J0696; J1650; J2405; J2930; J3490; J7040